=== PATIENT | male | born 1965 | race Caucasian/White ===

== ENCOUNTER 2017-03-26 13:01 | Emergency (ER) | payer BC ==
--- NOTE | 2017-03-26 14:38 | RAD ---
HISTORY: Right knee pain COMPARISONS: January 13, 2017 VIEWS: 6, Frontal, lateral, axial, and oblique views of the right knee FINDINGS: BONE DENSITY: Normal. BONES: There is postsurgical change to the proximal tibia. JOINTS: There is moderate tricompartmental osteoarthritis. ALIGNMENT: There is no dislocation. SOFT TISSUES: Unremarkable. OTHER FINDINGS: None. IMPRESSION: OSTEOARTHRITIS. NO ACUTE OSSEOUS INJURY. IF SYMPTOMS PERSIST, RECOMMEND REPEAT IMAGING.
--- NOTE | 2017-03-26 15:47 | ED ---
Lower Extremity - HPI Summary HPI Summary: 51M presents with right knee pain that got worst last night. He states he stepped out of his truck and that he developed an intense pain in the center of his knee. He states the area did not buckle but the pain was so intense that he lowered his himself to the floor. Has not been able to bear weight on it since. has full ROM with pain. The pain is normal on the medial aspect of her knee but is now more in the center. he denies any dislocation of the knee. He states the pain is so intense he wants surgery tomorrow. called office and they said can schedule appointment or can go to ED. - History of Current Complaint Chief Complaint: EDExtremityLower Stated Complaint: RT KNEE PAIN/CANT WALK Time Seen by Provider: 03/26/17 14:16 Pain Intensity: 10 - Allergies/Home Medications Allergies/Adverse Reactions: Allergies Allergy/AdvReac Type Severity Reaction Status Date / Time No Known Allergies Allergy Verified 01/21/17 10:41 PMH/Surg Hx/FS Hx/Imm Hx Endocrine/Hematology History: Denies: Hx Diabetes Cardiovascular History: Denies: Hx Hypertension, Hx Pacemaker/ICD Respiratory History: Reports: Hx Sleep Apnea GI History: Reports: Other GI Disorders - 2004 CHOLECYSTECTOMY History: Denies: Hx Renal Disease, Other Problems/Disorders Musculoskeletal History: Reports: Other Musculoskeletal History - HX OF FX LEG, HAND, FINGER, SEE COMMENT Sensory History: Reports: Hx Contacts or Glasses - READING GLASSES Denies: Hx Hearing Aid Opthamlomology History: Reports: Hx Contacts or Glasses - READING GLASSES Psychiatric History: Denies: Hx Panic Disorder - Surgical History Surgery Procedure, Year, and Place: T&A A CHILD. APPENDECTOMY A CHILD. 1996 FX RIGHT LEG- PA ( UVALDO REMOVED). FX RIGHT INDEX FINGER- PA ( W/PINS ). 2003 CHOLECYSTECTOMY- CHEMO PA Hx Anesthesia Reactions: No Infectious Disease History: No Infectious Disease History: Denies: Traveled Outside the [place] in Last 30 Days - Family History Known Family History: Positive: Hypertension - Social History Alcohol Use: Weekly Alcohol Amount: 1 GLASS WINE/WEEK Substance Use Type: Reports: None Smoking Status (MU): Former Smoker Amount Used/How Often: 3-4 CIGARETTES/DAY FOR 6 YRS Length of Time of Smoking/Using Tobacco: 6 YRS Have You Smoked in the Last Year: No Review of Systems Negative: Fever Negative: Chest Pain Negative: Shortness Of Breath Positive: Myalgia - right knee pain All Other Systems Reviewed And Are Negative: Yes Physical Exam Triage Information Reviewed: Yes Vital Signs On Initial Exam: Initial Vitals Temp Pulse Resp BP Pulse Ox 98.3 F 72 20 154/87 98 03/26/17 13:14 03/26/17 13:14 03/26/17 13:14 03/26/17 13:14 03/26/17 13:14 Vital Signs Reviewed: Yes Appearance: Positive: Well-Appearing Skin: Positive: Warm, Dry Head/Face: Positive: Normal Head/Face Inspection Eyes: Positive: Normal, Conjunctiva Clear Respiratory/Lung Sounds: Positive: Clear to Auscultation, Breath Sounds Present Cardiovascular: Positive: Normal, RRR Musculoskeletal: Positive: Limited @ - right knee pain, Other - good pulses, capillary refill<2 secs, tenderness to medial ascpect of knee, neg anterior drawer, neg ballotment - David Coma Scale Coma Scale Total: 15 Diagnostics - Vital Signs Vital Signs Temp Pulse Resp BP Pulse Ox 03/26/17 13:14 98.3 F 72 20 154/87 98 - Laboratory Lab Statement: Any lab studies that have been ordered have been reviewed, and results considered in the medical decision making process. - Radiology knee Xray Interpretation: Positive (See Comments) - IMPRESSION: OSTEOARTHRITIS. NO ACUTE OSSEOUS INJURY. IF SYMPTOMS PERSIST, RECOMMEND REPEAT IMAGING. Radiology Interpretation Completed By: Radiologist Lower Extremity Course/Dx - Course Course Of Treatment: 51M presents with right knee pain that got worst last night. He states he stepped out of his truck and that he developed an intense pain in the center of his knee. He states the area did not buckle but the pain was so intense that he lowered his himself to the floor. Has not been able to bear weight on it since. has full ROM with pain. The pain is normal on the medial aspect of her knee but is now more in the center. he denies any dislocation of the knee. He states the pain is so intense he wants surgery tomorrow. on exam full ROM of knee. neg ballotment, neg anterior drawer. tenderness over medical aspect of knee. xray osteoarthritis. spoke with dr king recommended medrol dose pack and will see in office. patient requesting pain medication so will give short script for break through pain. explained that need to get cleared by primary before can have surgery. patient understands and agrees with plan. - Diagnoses Differential Diagnosis/HQI/PQRI: Positive: Fracture (Closed), Sprain, Strain Provider Diagnoses: Right knee pain - Physician Notifications Discussed Care Of Patient With: Guille King Time Discussed With Above Provider: 15:57 Discharge - Discharge Plan Condition: Good Disposition: HOME Prescriptions: Methylprednisolone [Medrol Dosepak 4 MG*] 4 mg PO .SEE MAGGIE INSTRUCTION #1 packet oxyCODONE/Acetamin 5/325 MG* [Percocet 5/325 TAB*] 1 tab PO Q6H PRN #8 tab MDD 4 PRN Reason: Pain - Severe Patient Education Materials: Knee Pain (ED) Referrals: Guille King MD [Medical Doctor] - Adonis Carlson MD [Primary Care Provider] - Additional Instructions: Follow direction on steroid pack Use Tylenol and ibuprofen every 6 hours, use narcotic for break through pain Ice, elevate Call office for appointment time with ortho on Thursday Return to ED if develop any new or worsening symptoms
[2017-03-26 16:38] VITALS: BP 152/82
== END 2017-03-26 16:36 | disposition home or self-care (01) ==
LOC: ED 13:01
DX: M25.561 Pain in right knee (principal); Z87.891 Personal history of nicotine dependence; M17.11 Unilateral primary osteoarthritis, right knee
CPT/HCPCS: 99282

== ENCOUNTER 2017-04-10 08:31 | Day surgery (SDC) | payer BC, OTHER ==
[~2017-04-10 08:31] MED LIST: Buffered Lidocaine 0.9% SYRIN* 5 ML/SYR SYRINGE INTRADERM ONE; Famotidine IV* 10 MG/ML 2 ML (20 mg) IV ONE; Metoclopramide TAB* 10 MG PO ONE
[2017-04-10] MEDS ORDERED: Buffered Lidocaine 0.9% SYRIN* 5 ML/SYR SYRINGE ONE (08:47)
[2017-04-10] MEDS ORDERED: Metoclopramide TAB* 10 MG ONE (08:47)
[2017-04-10] MEDS ORDERED: Famotidine IV* 10 MG/ML 2 ML (20 mg) ONE (08:47)
[2017-04-10] MEDS ORDERED: ceFAZolin 2 GM PREMIX (*) 2 GM/50 ML BAG IVPB ONE (08:47)
[2017-04-10] MEDS ORDERED: fentaNYL* 50 MCG/ML 2 ML VIAL (100 MCG VIAL) ONE (09:03)
[2017-04-10] MEDS ORDERED: Lidocaine 2% PF * 5 ML VIAL ONE (09:03)
[2017-04-10] MEDS ORDERED: Ketorolac INJ* 30 MG/ML 1 ML VIAL ONE (09:03)
[2017-04-10] MEDS ORDERED: Ondansetron INJ* 2 MG/ML VIAL ONE (09:03)
[2017-04-10] MEDS ORDERED: Dexamethasone IV* 4 MG/ML 1 ML (4 MG) ONE (09:03)
[2017-04-10] MEDS ORDERED: Midazolam* 1 MG/ML 5 ML VIAL (5 MG) ONE (09:03)
[2017-04-10] MEDS ORDERED: Propofol* 10 MG/ML 20 ML BTL IV PUSH ONE (09:03)
[2017-04-10] MEDS ORDERED: KETAMINE HCL* 50 MG/ML 10 ML VIAL ONE (09:03)
[2017-04-10] MEDS ORDERED: EPINEPHrine AMP 1 MG/ML ONE (09:23)
[2017-04-10] MEDS ORDERED: Bupivacaine 0.5% SDV PF* 30 ML VIAL ONE (09:23)
[2017-04-10] MEDS ORDERED: fentaNYL* 50 MCG/ML 2 ML VIAL (100 MCG VIAL) IV PRN (10:15)
[2017-04-10] MEDS ORDERED: Ondansetron INJ* 2 MG/ML VIAL IV PRN (10:15)
[2017-04-10] MEDS ORDERED: Lidocaine 1.5% EPI 1:200,000* 30 ML SDV ONE (10:24)
[2017-04-10] MEDS: oxyCODONE/Acetamin 5/325 MG* TAB PO PRN ×2 (12:00→12:01)
[2017-04-10 13:15] VITALS: BP 142/75
--- NOTE | 2017-04-13 01:29 | OP ---
OPERATIVE REPORT: DATE OF OPERATION: 04/10/17 - [facility] DATE OF : 63 SURGEON: Guille Fuentes MD GENERAL CLERK: NIEVES Corea A physician document control assistant was required for the length of the procedure for help with instrumentation and knee manipulation. ANESTHESIOLOGIST: Dr. Marino Lezama. ANESTHESIA: General anesthesia. PRE-OP DIAGNOSIS: Right knee medial meniscus tear. POST-OP DIAGNOSIS: Right knee medial meniscus tear. OPERATIVE PROCEDURES: 1. Right knee arthroscopic partial medial meniscectomy. 2. Right knee arthroscopic anterior synovectomy. ANTIBIOTICS: Ancef 3 g IV. IV FLUIDS: 1100 cc crystalloid. TOURNIQUET TIME: 33 minutes at 300 mmHg. COMPLICATIONS: None. SPECIMEN: None. IMPLANTS: None. ESTIMATED BLOOD LOSS: Minimal. 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 That pain started at work. It was treated nonoperatively with a cortisone injection , which helped his symptoms for only 1 week. There was much pain with any sort of twisting motion of the right knee. Of note, the patient had had a prior right lower extremity surgery, specifically an intramedullary nail to treat a right tibia shaft fracture in 1996 with the nail being subsequently removed 2 to 3 years later because of some anterior knee pain. The patient had an MRI, which demonstrated a likely horizontal oblique tear in the posterior horn of the medial meniscus, nondisplaced. Because of the lack of displacement of that meniscus tear, I continued to treat the patient nonoperatively. However, on 03/25/17, the patient was getting out of the truck at work and he had sudden intense pain with immediate swelling. He went to the emergency room because of the significance of the level of pain where he was given a Medrol Dosepak and oxycodone as well as a knee immobilizer. The patient was limping much after that. No locking or catching. The pain and increased swelling were making it difficult to walk and the patient decided he definitely wanted operative management of this medial meniscus tear. The patient had tried knee strengthening and oral anti-inflammatories as well for a full nonoperative treatment spectrum that failed to stem his pain sufficiently. We discussed risks and potential complications of surgery preoperatively. These included bleeding, infection, nerve or blood vessel injury, knee pain, stiffness, or osteoarthritis. DESCRIPTION OF PROCEDURE: Preoperative written consent was obtained. Operative extremity was marked in the preoperative holding. The patient was taken back to the operating room and placed supine on the operating room table. General anesthesia was applied. The patient's right proximal thigh was placed in a tourniquet, but it was not inflated. Distal thigh was placed in a circumferential thigh briscoe. The table was elevated and the foot of the table was dropped. The right lower extremity was prepped with ChloraPrep, foot to proximal thigh. The right lower extremity was draped. Surgical time-out was performed. An Esmarch was applied and the tourniquet was elevated to 300 mmHg. An anterolateral knee arthroscopy incision was established using standard technique. I started in the patellofemoral compartment. I noted in the femoral compartment no significant patellofemoral articular cartilage damage, although there was some clear synovitis entering into that compartment. I next dropped down into the medial compartment. The medial compartment demonstrated some articular cartilage wear as well as a full thickness radial tear about the posterior body of the medial meniscus. I next continued my diagnostic arthroscopy to the intracondylar notch where I found the ACL and the PCL to be intact. I then moved to the lateral compartment where there was no meniscus injury to the lateral meniscus. There was some clear wear to the articular cartilage in the lateral compartment as in the medial compartment. Although there was some synovitis anteriorly, I did not visualize the calcification or bone projection, visualized on the lateral x-ray, which was preoperative and corresponding to the likely prior path of the intramedullary nail. I was able to palpate from outside of the knee the location of this anterior or anterolateral about the knee, but was not visible intraarticular. I established an anteromedial portal under direct visualization. I debrided the meniscus tear back to a stable rim using arthroscopic shaver and arthroscopic biters, working first from the anteromedial and then from the anterolateral portal. The meniscus was debrided back to a stable rim with a minimum of meniscus removed. I then moved to the anterior aspect of the knee. I debrided some synovitic tissue anteriorly. I probed and looked for any evidence of that bony bridge being closed to the inside of the joint. It was not well visualized at all. I was not able to see it intraarticularly. Therefore, I decided that, as it was not causing him pain and was not easily accessible, it would not make sense to debride additional tissue to reduce it in size either arthroscopically or with open technique. I removed instruments and fluid from the knee. I closed the skin incisions with figure-of- eight stitches using nylon 4-0 sutures. Xeroform , 4x4s, sterile Webril, Audie bandage from foot to proximal thigh. Tourniquet was dropped. DISPOSITION: The patient was extubated and brought to the PACU. The patient will follow up in 10 to 14 days postoperatively for a wound check. The patient was placed on Percocet as needed for pain control, aspirin for DVT prophylaxis and Keflex for infection prophylaxis postoperatively. He will begin physical therapy immediately and already has an appointment scheduled in 3 days on Thursday. He is weightbearing as tolerated. The patient can remove his crutches as soon as it is safe. Because of the nature of his partial meniscectomy, and that fact that he unexpectedly had a full thickness radial tear of the meniscus , the patient has a very poorly functional medial meniscus right now. Therefore , I decided to place the patient in a medial residential aide brace. I wrote a prescription for medial residential aide brace and the patient and his have an appointment to obtain one and get it fit on Thursday morning about the time of their physical therapy appointment. I answered the telephone call over the weekend and told the patient that the plan for physical therapy and recovery from the operation otherwise does not change at all. The medial residential aide brace is to prevent a bone bruise, bone contusion in the medial compartment as the patient wraps up his activity postoperatively. [id number]/[facility] #: [id number] BESS
== END 2017-04-10 13:44 | disposition home or self-care (01) ==
LOC: OR 08:31
PROVIDERS: ATTEND Orthopaedic Surgery
DX: S83.241A Other tear of medial meniscus, current injury, right knee, initial encounter (principal); X50.0XXA Overexertion from strenuous movement or load, initial encounter; Y92.89 Other specified places as the place of occurrence of the external cause; Y99.0 Civilian activity done for income or pay; M65.9 Synovitis and tenosynovitis, unspecified; G47.33 Obstructive sleep apnea (adult) (pediatric)
CPT/HCPCS: A9270-GY; J0171; J0690; J1100; J1885; J2250; J2405; J2704; J3010

== ENCOUNTER 2018-07-28 05:49 | Day surgery (SDC) | payer BC ==
[~2018-07-28 05:49] MED LIST changes: -Buffered Lidocaine 0.9% SYRIN* 5 ML/SYR SYRINGE INTRADERM ONE; +Buffered Lidocaine 1% SYRIN* 1 ML/SYRINGE INTRADERM ONE; -Famotidine IV* 10 MG/ML 2 ML (20 mg) IV ONE; -Metoclopramide TAB* 10 MG PO ONE
[2018-07-28] MEDS ORDERED: Lactated Ringers 1000 ML Bag* 1,000 ML IV SCH (06:00)
[2018-07-28] MEDS ORDERED: ceFAZolin 2 GM PREMIX in ORs 2 GM/50 ML BAG IVPB ONE (06:39)
[2018-07-28] MEDS ORDERED: Rocuronium* 10 MG/ML VIAL ONE (06:49)
[2018-07-28] MEDS ORDERED: Lidocaine 2% PF * 5 ML VIAL ONE (06:49)
[2018-07-28] MEDS ORDERED: Propofol* 10 MG/ML 20 ML BTL ONE (06:49)
[2018-07-28] MEDS ORDERED: Succinylcholine* 20 MG/ML 10 ML VIAL ONE (06:49)
[2018-07-28] MEDS ORDERED: Midazolam* 1 MG/ML 2 ML VIAL (2 MG) ONE ×2 (06:50→07:42)
[2018-07-28] MEDS ORDERED: ROPIVACAINE 5 MG/ML 30 ML BTL (0.5%) ONE (06:50)
[2018-07-28] MEDS ORDERED: fentaNYL* 50 MCG/ML 2 ML VIAL (100 MCG VIAL) ONE ×2 (06:50→09:49)
[2018-07-28] MEDS ORDERED: Dexamethasone IV* 4 MG/ML 1 ML (4 MG) ONE ×4 (06:52→13:02)
[2018-07-28] MEDS ORDERED: EPINEPHRINE 1 MG/ML 1 ML VIAL ONE (07:20)
[2018-07-28] MEDS ORDERED: Bupivacaine 0.5% W/EPI SDV* 30 ML VIAL ONE (07:20)
[2018-07-28] MEDS ORDERED: Metoclopramide IV* 5 MG/ML 2 ML VIAL ONE ×2 (08:09→13:02)
[2018-07-28] MEDS ORDERED: Ondansetron INJ* 2 MG/ML VIAL ONE ×2 (08:09→13:02)
[2018-07-28] MEDS ORDERED: Ketorolac INJ* 30 MG/ML 1 ML VIAL ONE ×2 (08:09→13:02)
[2018-07-28] MEDS ORDERED: ceFAZolin 1 GM VIAL(*) ONE (08:12)
[2018-07-28] MEDS ORDERED: DiMENhydriNATE IV* 50 MG/ML VIAL IV PUSH PRN (09:13)
[2018-07-28] MEDS ORDERED: HYDROmorphone INJ1* 1 MG/ML SYRINGE IV PRN (09:13)
[2018-07-28] MEDS ORDERED: Acetaminophen IV 1GM/100ML * 100 ML ONE (09:13)
[2018-07-28] MEDS ORDERED: oxyCODONE TAB* 5 MG TAB PO PRN (09:13)
[2018-07-28] MEDS ORDERED: Naloxone* 0.4 MG/ML 1 ML VIAL IV PRN (09:13)
[2018-07-28] MEDS ORDERED: DiMENhydriNATE IV* 50 MG/ML VIAL ONE (11:53)
[2018-07-28] MEDS ORDERED: Scopolamine 1.5 mg* PATCH ONE (12:33)
[2018-07-28] MEDS ORDERED: Haloperidol INJ IV/IM* 5 MG/ML AMP IV SLOW PU PRN (12:35)
[2018-07-28] MEDS ORDERED: Haloperidol INJ IV/IM* 5 MG/ML AMP ONE (14:39)
[2018-07-28 17:13] VITALS: BP 128/73
--- NOTE | 2018-07-29 17:42 | OP ---
DATE OF OPERATION: 07/28/18 - [facility] DATE OF : 63 SURGEON: Dr. Guille Fuentes. GAMMA OPERATOR: NIEVES Corea. A physician orthodontic technician assistant was required for the length of procedure for assistance with positioning, retraction, instrumentation , and closure. ANESTHESIOLOGIST: Amna Ratliff DO ANESTHESIA: General anesthesia, regional interscalene block anesthesia, local anesthesia 10 cc of 0.5% Marcaine with epinephrine. PRE-OP DIAGNOSES: 1. Left shoulder subacromial impingement and bursitis. 2. Left shoulder acromioclavicular joint osteoarthritis. 3. Left shoulder rotator cuff tendonitis. 4. Left shoulder proximal biceps tendinosis. POST-OP DIAGNOSES: 1. Left shoulder subacromial impingement and bursitis. 2. Left shoulder acromioclavicular joint osteoarthritis. 3. Left shoulder rotator cuff tendon tears, multiple, chronic, supraspinatus, with diseased tendon appearance and intact tendon. 4. Left shoulder proximal biceps tendinosis. 5. Articular cartilage wear, grade 1 to 2, left shoulder humeral head. OPERATIVE PROCEDURE: 1. Arthroscopic left shoulder rotator cuff tendon repair, with Regeneten biologic patch from [employer]. 2. Arthroscopic left shoulder subacromial decompression. 3. Arthroscopic left shoulder distal clavicle resection. 4. Open proximal biceps tenodesis, left shoulder. ANTIBIOTICS: Ancef 3 g IV. IV FLUIDS: See anesthesia note. VEWF-IB-PHLU TIME: 165 minutes. ARTHROSCOPIC FLUID UTILIZED: Unknown. SPECIMEN: None. IMPLANTS: [employer] Regeneten biologic patch, size large; Arthrex proximal biceps tenodesis button x1. COMPLICATIONS: None. ESTIMATED BLOOD LOSS: Minimal. 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 Pain was affecting him at work, during the day and at night. He opted for shoulder surgery. We discussed risks and potential complications, pros and cons as well as the postoperative recovery time. DESCRIPTION OF PROCEDURE: In preoperative holding, the patient signed a written consent. Operative extremity was marked in preoperative holding. The patient was taken back to the operating room after undergoing a regional nerve block, interscalene, by Dr. Ratliff. On the operating room table, the patient was placed in supine position, sedated and intubated. Placed lateral decubitus. Beanbag. Beanbag hardened. Axillary roll. Bony prominences padded. Left shoulder in longitudinal traction, 15 pounds. Appropriate forward flexion and abduction. Left shoulder prepped and draped. Surgical time-out was performed. 30 mL of normal saline infused from posterior into glenohumeral joint. Posterior glenohumeral joint portal established. Diagnostic arthroscopy started. I noted some articular cartilage wear, grade 1 to 2 over the superior aspect of humeral head. There was shredding of the proximal biceps tendon near its origin. Had clearly diseased. Noticed no subscapularis tear. There was a significant amount of undersurface footprint visible of the supraspinatus and anterior infraspinatus, although there was no clear tear evident on the undersurface of these rotator cuff tendons. This told me that the rotator cuff was likely not edwards and might be chronically thin. I established an anterior glenohumeral joint portal under direct visualization. I cut the biceps near its origin and debrided the superior labrum. I debrided some synovitis in the rotator cuff interval. I ensured the exposed footprint to be about 5 mm. I marked some of the poor quality tissue in the rotator cuff tendon with a spinal needle from outside the shoulder. I removed the instruments from the glenohumeral joint and then placed them into the subacromial space. I established lateral and the posterolateral portals under direct visualization. What I encountered in the subacromial space was a significant amount of subacromial bursitis. This was more than perhaps I have ever seen in the shoulder or close to the most I have ever seen in the shoulder. I started with the bone and I removed the significant amount of subacromial bursitis with an arthroscopic shaver. I finally was able to visualize the rotator cuff tendon. Gutters were nicely cleaned out by arthroscopic shaver. There was no full- thickness tear obvious at first. I probed one side of the switching stick and it easily shell through an area about the musculotendinous junction or just lateral to that in the middle of the supraspinatus. I noted a very prominent indent from where the muscle turned into the tendon at about the level of the glenoid. This was quite striking. Whether caused by impression from the acromion or the thickened bursa. At this point given the patient's young age, the very poor quality supraspinatus tendon as well as the focal full thickness area of tearing, mild, hole like, as well as the undersurface of exposed footprint, I thought that this patient would be a very good candidate for a biologic patch. I did not think that a takedown of tendon or a partial repair with bone anchors would make sense as there was no clear retracted tendon tear. I considered a side-to- side repair, although the quality of the tendon anterior and posterior to that small hole seemed so poor that I thought that this might do more harm than good , so I felt off from that. At this point, I asked for a rep from the company that produce biologic patch, [employer] to come to my operating room. At this point, knowing I would need to wait for the patch, I proceeded to the bony decompression part of the procedure. I used an arthroscopic bur from laterally to debride the undersurface of the anterior aspect of the acromion. I then used the bur to debride at least 8 mm of the distal end of the clavicle. We waited around some time and then the patch became available. We placed the biologic patch size large through the lateral portal. We used only the absorbable himanshu, at least 8 of them and they kept the patch in place. The patch ran from about the level of the musculotendinous junction near where that hole was to the footprint on the greater tuberosity. The patch was held in place nicely. Fluid and instruments were removed from the subacromial space. Skin incisions were closed with [id number] and 12 stitches using nylon 3-0 suture. The patient was converted into a nearly supine position with anesthesia watching head and neck. A standard longitudinal anteromedial skin incision about the proximal upper arm was made. I dissected down the bicipital groove. Retractors. Obtained the long head of the biceps tendon. I placed a Beath pin through the bicipital groove of anterior cortex. Marked my biceps tendon for correct tension and height. I placed 3 stitches using FiberLoop suture. I loaded my button. I placed my button through the bone hole and slipped it. Tied a knot and then tied another knot with a free needle. Removed access biceps tendon. Irrigation. Closer of subcutaneous tissue with buried simple stitches using Vicryl 3-0 suture and closure of subcuticular layer with running stitches and Monocryl 4-0 suture. Mastisol and Steri-strips and then 4x4 and Tegaderm anteriorly. Arthroscopic skin incisions received Xeroform, 4x4s, ABDs, foam tape. Sling with abduction pillow. The patient was awakened, extubated, and brought to the PACU. DISPOSITION: Wound care instructions provided. The patient will receive Percocet as needed for pain control, aspirin b.i.d. for 2 weeks for DVT prophylaxis, and Keflex for 7 days for infection prophylaxis. He will follow up 10 to 14 days postoperatively. I will hold off on physical therapy until after the first clinic visit. He will be in his sling at all times. [id number]/[facility] #: [id number] BESS
== END 2018-07-28 14:40 | disposition home or self-care (01) ==
LOC: OR 05:49
PROVIDERS: ATTEND Orthopaedic Surgery
DX: M75.42 Impingement syndrome of left shoulder (principal); M19.012 Primary osteoarthritis, left shoulder; M75.102 Unspecified rotator cuff tear or rupture of left shoulder, not specified as traumatic; M75.22 Bicipital tendinitis, left shoulder; M24.112 Other articular cartilage disorders, left shoulder; Z87.891 Personal history of nicotine dependence; G89.18 Other acute postprocedural pain; G47.33 Obstructive sleep apnea (adult) (pediatric)
CPT/HCPCS: A9270-GY; C1713; C1776; J0330; J0690; J1100; J1240; J1630; J1885; J2250; J2405; J2704; J2765; J2795; J3010